=== PATIENT | male | born 1960 | race Caucasian/White ===

== ENCOUNTER → 2016-12-06 | Outpatient (CLI) | payer MEDICARE ==
--- NOTE | 2016-12-06 08:15 | CT ---
EXAMINATION TYPE: CT chest w con DATE OF EXAM: 12/06/2016 COMPARISON: NONE HISTORY: Chronic cough with SOB CT DLP: 493.3 mGycm Automated exposure control for dose reduction was used. CONTRAST: CT scan of the chest is performed with IV Contrast, patient injected with 100 mL of Omnipaque 300. FINDINGS: LUNGS: The lungs are grossly clear, there is no concerning parenchymal mass or nodule identified. T here is no pleural effusion or pneumothorax seen. The tracheobronchial tree is patent. Subsegmental changes seen posteriorly involving the lung bases most suggestive of dependent atelectasis. MEDIASTINUM: There are no greater than 1 cm hilar or mediastinal lymph nodes. No pericardial effusi on is seen. OTHER: Hypodensity within the right kidney suggestive of a simple cyst and there appears to be evide nce of tiny gallstones. Hepatic lesion measures 4 Hounsfield units suggestive of hepatic cyst and lik laisha is a degree of fatty rotation of the liver. Hypertrophic changes of the spine noted. IMPRESSION: 1. No acute intrathoracic process 2. Hepatic and renal cyst or 3 cholelithiasis
== END | disposition home or self-care (01) ==
LOC: RADCTMAIN 07:12
PROVIDERS: ATTEND Family Medicine
DX: R06.02 Shortness of breath (principal)
CPT/HCPCS: 71260; Q9967

== ENCOUNTER → 2017-02-02 | Outpatient (CLI) | payer MEDICARE ==
--- NOTE | 2017-02-02 11:55 | FL ---
EXAMINATION TYPE: FL UGI w esophagus w sm bowel DATE OF EXAM: 02/02/2017 10:30 AM COMPARISON: NONE CLINICAL HISTORY: Pain reflux 1 min 49 sec fluoro 18 images submitted Preliminary film of the abdomen reveals no definite abnormality. Upper GI examination was performed u tilizing the air contrast technique. Barium and effervescent crystals were swallowed without difficu lty or delay. Esophageal peristalsis and motility are within normal limits. There is no evidence for hiatal hernia or esophagitis. Minimal gastroesophageal reflux is noted. The stomach has a normal size, shape and position. No gastric filling defects are seen. No gastric ulcer craters are seen. The duodenal bulb and sweep appear to be grossly unremarkable without evidence for filling defect or ulcer crater. Small bowel follow through is performed with a normal transit time. The small bowel loops are of norm al caliber and demonstrate a normal mucosal fold pattern. The terminal ileum is unremarkable. IMPRESSION: Very mild gastroesophageal reflux.
== END | disposition home or self-care (01) ==
LOC: RADFLMAIN 08:58
PROVIDERS: ATTEND Family Medicine
DX: K21.9 Gastro-esophageal reflux disease without esophagitis (principal)
CPT/HCPCS: 74245

== ENCOUNTER → 2017-02-17 | Outpatient (CLI) | payer MEDICARE ==
--- NOTE | 2017-02-17 13:40 | CT ---
EXAMINATION TYPE: CT sinus wo con DATE OF EXAM: 02/17/2017 COMPARISON: NONE HISTORY: chronic cough CT DLP: 609.4 mGycm. Automated Exposure Control for Dose Reduction was Utilized. TECHNIQUE: CT scan of the sinuses is performed without contrast, axial images are obtained, coronal r eformatted images are also reviewed. FINDINGS: Visualized intracranial structures are unremarkable. The soft tissues are unremarkable. The orbits appear normal. The left frontal sinus is hypoplastic. The remainder the paranasal sinuses are clear. Both infundibul a are patent. The mastoid air cells are clear. IMPRESSION: NORMAL CT SCAN OF THE SINUSES.
== END ==
LOC: RADCTMAIN 13:05
PROVIDERS: ATTEND Family Medicine
DX: J32.9 Chronic sinusitis, unspecified (principal)
CPT/HCPCS: 70486

== ENCOUNTER 2017-04-29 11:22 | Day surgery (SDC) | payer MEDICARE ==
[2017-04-27 11:21] VITALS: BMI 32.3
--- NOTE | 2017-04-29 10:25 | HP ---
HISTORY AND PHYSICAL CHIEF COMPLAINT: Chronic laryngitis. HISTORY OF PRESENT ILLNESS: This patient is a 57-year-old male who was originally seen in my office complaining of chronic laryngitis. It is interesting to note that the patient had history of Meniere disease and underwent sectioning of his vestibular nerve. As a complication of this procedure, the patient developed a chronic cough. At the time that he was seen in my office, clinical examination including an indirect laryngoscopy and a video stroboscopy was not complete because of the patient's hyperactive gag reflex. It was not able to be determined whether or not there was there was any type of lesion at the anterior aspect of the patient's larynx. Therefore, it was recommended that the patient undergo a suspension microlaryngoscopy in an effort to rule out any type of lesion of the anterior larynx as a cause for his cough and his laryngitis. PAST MEDICAL HISTORY: Past medical history reveals that he has no allergies to medications. Current medications include Muriel D. The patient has been advised to avoid Muriel-D because it is notorious for elevating patients blood pressure. REVIEW OF SYSTEMS: Completely unremarkable. PREVIOUS SURGERIES: Include rotator cuff surgery, septoplasty, sectioning of the vestibular nerve and acoustic nerve, colonoscopy and partial colon resection. The review of systems is unremarkable. PHYSICAL EXAMINATION: The patient is a pleasant, 57-year-old male who was alert and cooperative. HEENT EXAMINATION: Patient is normocephalic. Tympanic membranes are normal. Middle ear spaces are free of any fluid or infection. Pupils equal, round, react to light and accommodation. Extraocular movements within normal limits. Intranasal examination reveals moderate to severe septal deviation with compensatory hypertrophy of the inferior turbinates and a moderate amount of mucus on the mucous membranes and draining down the posterior pharynx. Examination of the oropharynx, palpation of the neck, cranial nerves 2 through 12 and remainder of the head and neck exam are all within normal limits. CHEST, CARDIOVASCULAR: Both lung byrnes are clear to percussion and auscultation. The patient is in regular sinus rhythm. S1 and S2 are present without any murmurs, S3s or S4. Peripheral pulses are bilaterally symmetrical. ABDOMEN: There is no evidence the masses, megaly or tenderness. The abdomen is soft. Skin is unremarkable. Musculoskeletal and neurological are within normal limits. RECTAL EXAM: The rectal exam is deferred at this time because the patient has this done on a regular basis at his family physician's office. The remainder of the physical exam is unremarkable. IMPRESSION: Chronic laryngitis, suspect laryngeal lesion. PLAN: The patient is scheduled to undergo a suspension microlaryngoscopy with possible biopsy under general anesthesia. ATTENTION RNS IN THE PRE-SURGICAL AREA: I have not ordered any pre-surgical prophylactic antibiotics for this patient. If the Pharmacy Department sends any pre- surgical prophylactic antibiotics to the pre-surgical area for this patient, they should be returned to the Pharmacy Department and that order should be cancelled and make sure that the patient's account is credited appropriately. I have ordered that this patient receive Ofirmev 1000 mg IV to be given once an intravenous line has been established. I have discussed the risks, benefits and alternative therapies for the above-mentioned procedure and for both sedation/analgesia as well as necessary blood product administration, if indicated, as they pertain to this patient. The patient has indicated his or her understanding and acceptance of the risks and procedures discussed. GARO / DARIEN: [id number] /
[~2017-04-29 11:22] MED LIST: DEXAMETHASONE SOD PHOSPHATE 10 MG/ML 1 ML VIAL IV ONE; HYDROmorphone 0.5 MG/0.5 ML SYRINGE IVP PRN; HYDROmorphone 1 MG/ML 1 ML SYRINGE IVP PRN; MIDAZOLAM 2 MG/2 ML VIAL IV PRN; ONDANSETRON 4 MG/2 ML VIAL IVP ONE; Pre Op ABX Message 1 EACH MISC MISCELLANE ONE; SCOPOLAMINE 1.5MG/72HR PATCH TRANSDERM ONE
[2017-04-29] MEDS: LACTATED RINGERS 1,000 ML IV SCH ×2 (11:39→13:36)
[2017-04-29] MEDS: ACETAMINOPHEN IV (For NPO) 1,000 MG in EMPTY BAG 1 BAG IVPB ONE ×2 (11:51→13:36)
[2017-04-29] MEDS ORDERED: ROCURONIUM BROMIDE 10 MG/ML 10 ML VIAL IV ONE (13:37)
[2017-04-29] MEDS ORDERED: LIDOCAINE 1% INJ 10MG/ML (20 ML MDV) ONE (13:37)
[2017-04-29] MEDS ORDERED: PROPOFOL 10 MG/ML 20 ML VIAL IV ONE (13:37)
[2017-04-29] MEDS ORDERED: NEOSTIGMINE 1 MG/ML 10 ML VIAL ONE (13:37)
[2017-04-29] MEDS ORDERED: GLYCOPYRROLATE 0.2 MG/ML 2 ML VIAL ONE (13:37)
[2017-04-29] MEDS ORDERED: MIDAZOLAM 2 MG/2 ML VIAL ONE (13:37)
[2017-04-29] MEDS ORDERED: fentaNYL (PF) 50 MCG/ML 2 ML AMP ONE (13:37)
[2017-04-29] MEDS ORDERED: SUCCINYLCHOLINE CHLORIDE 100 MG/5 ML SYR IV ONE (13:37)
[2017-04-29] MEDS ORDERED: SODIUM CHLORIDE 0.9% 500 ML IV ONE (14:10)
[2017-04-29 14:49] VITALS: TEMP 96.8
[2017-04-29 15:21] VITALS: RESP 18
[2017-04-29 15:54] VITALS: BP 144/89; PULSE 68
--- NOTE | 2017-04-29 22:33 | OP ---
OPERATIVE REPORT PREOPERATIVE DIAGNOSIS: Chronic laryngitis with chronic cough. POSTOPERATIVE DIAGNOSIS: Chronic laryngitis with chronic cough. ANESTHESIA: General. OPERATIVE PROCEDURE: Suspension microlaryngoscopy. OPERATING SURGEON: Dr. Israel. COMPLICATIONS: None. ESTIMATED BLOOD LOSS: Zero. OPERATIVE PROCEDURE: The patient was placed on operating table in the supine position and after uneventful induction and endotracheal intubation, satisfactory general anesthesia was obtained. Next the patient was draped in usual and customary fashion. Next, the laryngoscope was introduced into the patient's oropharynx and inspection of the right and left piriform sinus, base of tongue, vallecula, with the laryngoscope was found to be negative for any suspicious lesions. Next, the tip of the laryngoscope was placed into the laryngeal introitus and advanced in the usual fashion. Following this, the Lewy apparatus was attached to the handle of the laryngoscope and the laryngoscope was suspended on the patient's chest. Next, using the Zeiss operating microscope and the magnified visualization, the entire laryngeal structures were inspected with special attention commissure. Also inspected was the right and left true vocal cord, ventricles, and the right and left false vocal cords. No suspicious lesions were noted. There did not appear to be any type of polyps, nodules or paralysis of the vocal cords. At this point, the procedure was terminated. The patient was given 10 mg of Decadron intraoperatively to reduce any laryngeal edema. The patient tolerated the procedure well and was returned to the recovery room in satisfactory condition. MMTEXL / IJKaci: [id number] /
== END 2017-04-29 15:55 | disposition home or self-care (01) ==
LOC: OR 11:22
PROVIDERS: ATTEND Otolaryngology
DX: J37.0 Chronic laryngitis (principal); R05 Cough; J34.2 Deviated nasal septum; J34.3 Hypertrophy of nasal turbinates; H81.09 Meniere's disease, unspecified ear; Z90.49 Acquired absence of other specified parts of digestive tract
CPT/HCPCS: 31526; J2250; J1100; J2710; J2405; J2001; J3010; J0131; J0330; J2704

== ENCOUNTER → 2017-12-12 | Outpatient (CLI) | payer MEDICARE ==
--- NOTE | 2017-12-12 11:40 | XR ---
EXAMINATION TYPE: XR chest 2V DATE OF EXAM: 12/12/2017 COMPARISON: Prior chest x-ray 01/21/2015 HISTORY: Cough TECHNIQUE: Frontal and lateral views of the chest are obtained. FINDINGS: There is some improvement in lung volumes, aeration at the lung bases as compared to prior exam. No evident pneumothorax. Patient is rotated. No sizable effusion. Cardiac mediastinal silhouet te, pulmonary vascularity and wilton within normal limits. IMPRESSION: No acute cardiopulmonary process.
[2017-12-14 13:32] LABS: Alt. alternata IgE Class CLASS 0; Alternaria alternata IgE <0.35 kU/L (<0.35); Asperg. fumagatus IgE <0.35 kU/L (<0.35); Asperg. fumagatus IgE Class CLASS 0; Bermuda Grass IgE <0.35 kU/L (<0.35); Birch(Com.Silvr) IgE <0.35 kU/L (<0.35); Birch(Com.Silvr) IgE Class CLASS 0; Cat Epith & Dander IgE <0.35 kU/L (<0.35); Cat Epith & Dander IgE Class CLASS 0; Clad herbarum IgE <0.35 kU/L (<0.35); Cockroach IgE <0.35 kU/L (<0.35); Cottonwood IgE <0.35 kU/L (<0.35); Dermato. Pteronyssinus IgE <0.35 kU/L (<0.35); Dermato. farinae IgE <0.35 kU/L (<0.35); Dermato. farinae IgE Class CLASS 0; Dog Dander IgE <0.35 kU/L (<0.35); Elm IgE <0.35 kU/L (<0.35); Maple (Box Elder) IgE <0.35 kU/L (<0.35); Maple (Box Elder) IgE Class CLASS 0; Mountain Cedar IgE <0.35 kU/L (<0.35); Mountain Cedar IgE Class CLASS 0; Mouse Urine IgE Class CLASS 0; Nettle IgE <0.35 kU/L (<0.35); Nettle IgE Class CLASS 0; Oak IgE <0.35 kU/L (<0.35); Penicillium notatum IgE Class CLASS 0; Rough Marshelder IgE <0.35 kU/L (<0.35); Rough Marshelder IgE Class CLASS 0; Timothy Grass IgE <0.35 kU/L (<0.35); White Ash IgE Class CLASS 0
== END | disposition home or self-care (01) ==
LOC: RADXRMAIN 09:47
PROVIDERS: ATTEND Internal Medicine Sleep Medicine
DX: R05 Cough (principal); B44.81 Allergic bronchopulmonary aspergillosis
CPT/HCPCS: 36415; 71046; 82785; 86001; 86003; 86606; 86609

== ENCOUNTER → 2018-05-16 | Outpatient (CLI) | payer MEDICARE ==
--- NOTE | 2018-05-16 14:12 | CT ---
EXAMINATION TYPE: CT sinus wo con DATE OF EXAM: 05/16/2018 COMPARISON: February 17, 2017 HISTORY: Patient complains of chronic cough. CT DLP: [address] of the paranasal sinuses was performed in the axial and coronal planes. Bone and soft tissue settings are submitted. The paranasal sinuses demonstrate normal aeration and development. Mild mucosal thickening of the maxillary sinuses. No air-fluid levels identified. Remaining paranasal sinuses are well aerated. Hypoplastic left frontal sinus. The osteal meatal units are patent bilaterally. The nasal septum is midline. No bony destructive changes are seen within the field of view. IMPRESSION: Mild chronic maxillary sinusitis.
== END | disposition home or self-care (01) ==
LOC: RADCTMAIN 13:27
PROVIDERS: ATTEND Family Medicine
DX: J32.0 Chronic maxillary sinusitis (principal)
CPT/HCPCS: 70486

== ENCOUNTER → 2019-02-28 | Outpatient (CLI) | payer MEDICARE ==
--- NOTE | 2019-02-28 11:08 | FL ---
EXAMINATION TYPE: FL barium swallow DATE OF EXAM: 02/28/2019 CLINICAL HISTORY: Chronic cough for 3 years. Previous upper GI and soft tissue neck CT. TECHNIQUE: A double contrast esophagram is performed utilizing air and barium. A total of 2 minutes and 14 seconds of fluoroscopic time was utilized during procedure. 40 fluoroscopic images were saved . COMPARISON: None FINDINGS: The esophagus shows slightly abnormal motility and emptying into the stomach as there is de layed propulsion in the lower esophagus with mild degree intraesophageal reflux without tertiary cont ractions in the upright position and mild delayed propulsion in the mid to upper esophagus in the sup ine position. No evidence of hiatal hernia or stricture noted. No significant gastroesophageal reflu x was seen during real time performance of this study. IMPRESSION: 1. 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 2. No stricture, hiatal hernia, or gastroesophageal reflux was seen during the exam.
== END | disposition home or self-care (01) ==
LOC: RADUSWWP 10:02
PROVIDERS: ATTEND Family Medicine
DX: K21.9 Gastro-esophageal reflux disease without esophagitis (principal)
CPT/HCPCS: 74220

== ENCOUNTER → 2020-11-12 | Outpatient (CLI) | payer MEDICARE ==
--- NOTE | 2020-11-12 11:35 | CT ---
EXAMINATION TYPE: CT sinus wo con DATE OF EXAM: 11/12/2020 COMPARISON: Prior sinus CT May 16, 2018 HISTORY: Allergic rhinitis CT DLP: 575.30 mGycm. Automated Exposure Control for Dose Reduction was Utilized. TECHNIQUE: CT scan of the sinuses is performed without contrast, axial images are obtained, coronal r eformatted images are also reviewed. FINDINGS: [id number] mucosal thickening inferiorly in left maxillary sinus is more prominent fr om prior study. Interval resolution of inferior mild mucosal thickening right maxillary sinus. Remain brianda paranasal sinuses remain clear without suspicious opacification or air-fluid levels. There is hyp oplastic left frontal sinus redemonstrated. The ostiomeatal complex is patent bilaterally on coronal image 20 currently study. Visualized portion of mastoid air cells show no abnormal opacification. The globes are intact bilate rally. IMPRESSION: Chronic left maxillary sinus disease. No acute sinusitis.
== END | disposition home or self-care (01) ==
LOC: RADCTMAIN 11:02
PROVIDERS: ATTEND Family Medicine
DX: J32.0 Chronic maxillary sinusitis (principal)
CPT/HCPCS: 70486

== ENCOUNTER → 2021-08-05 | Outpatient (CLI) | payer MEDICARE ==
--- NOTE | 2021-08-05 12:16 | CT ---
EXAMINATION TYPE: CT cervical spine wo con DATE OF EXAM: 08/05/2021 COMPARISON: CT dated 12/13/2018 HISTORY: radiculopathy CT DLP: 760.3 mGycm Automated exposure control for dose reduction was used. TECHNIQUE: CT scan of the cervical spine is obtained without contrast, axial images are obtained, sa gittal and coronal reformatted images are also reviewed. FINDINGS: Loss of normal cervical curvature. No significant anterolisthesis or retrolisthesis. No definite vert ebral body collapse or acute displaced fracture. 7 mm bone fragment is seen at the posterior aspect o f T1 spinous process which could be related to sequela of previous trauma. Degenerative changes at th e atlantoodontoid articulation. Degenerative changes of the cervical spine with multilevel opposing endplate osteophytosis, degenerat ed disks and uncovertebral osteoarthropathy, most evident at C5-6 and C6-7 levels. Bilateral C3-4, le ft C4-5 and left C5-6 facet osteoarthropathy is also noted. At C2-3 level: No significant central spinal canal stenosis or neuroforaminal stenosis. At C3-4 level: Small posterior disc osteophyte complex with facet osteoarthropathy (more on the left side), causing no significant central spinal canal stenosis, mild right and [id number] left aurelia roforaminal stenosis. At C4-5 level: Left facet osteoarthropathy, causing no significant central spinal canal stenosis and mild left neuroforaminal stenosis. At C5-6 level: Large posterior disc osteophyte complex causing severe central spinal canal stenosis a nd severe bilateral neuroforaminal stenosis. At C6-7 level: Large posterior disc osteophyte complex, causing severe central spinal canal stenosis and severe bilateral neuroforaminal stenosis. Previous right occipital craniotomy. Prominent palatine tonsils, please correct clinically. No parasp inal lesion. IMPRESSION: Degenerative changes of the cervical spine with multilevel DDD, central spinal canal stenosis and aurelia roforaminal stenosis, most evident at C5-6 and C6-7 levels as described above. Further MRI assessment can be considered to rule out compressive myelopathy. Other incidental findings as described above.
== END | disposition home or self-care (01) ==
LOC: RADCTMAIN 09:36
PROVIDERS: ATTEND Family Medicine
DX: M47.22 Other spondylosis with radiculopathy, cervical region (principal); M48.02 Spinal stenosis, cervical region; M50.123 Cervical disc disorder at C6-C7 level with radiculopathy; M99.71 Connective tissue and disc stenosis of intervertebral foramina of cervical region
CPT/HCPCS: 72125